=== PATIENT | female | born 1985 | race Caucasian/White ===

== ENCOUNTER 2016-07-28 23:49 | Emergency (ER) | payer SELFPAY ==
[~2016-07-28] VITALS: Wt 81.0 kg
[2016-07-29] MEDS ORDERED: ACET500C5 PO (02:08)
[2016-07-29] MEDS ORDERED: CYCL-319 PO (02:08)
[2016-07-29] MEDS ORDERED: HYDR-906 PO (02:11)
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
[2016-07-29 02:32] VITALS: PULSE 88; RESP 20; TEMP 99
== END 2016-07-29 02:30 | disposition home or self-care (01) ==
LOC: FTE 23:49
DX: S00.93XA Contusion of unspecified part of head, initial encounter (principal); S16.1XXA Strain of muscle, fascia and tendon at neck level, initial encounter; V49.40XA Driver injured in collision with unspecified motor vehicles in traffic accident, initial encounter
CPT/HCPCS: 99284